=== PATIENT | female | born 2000 | race Caucasian/White ===

== ENCOUNTER → 2019-03-30 16:46 | Observation (INO) ==
[2019-03-30 14:47] LABS: Protein/Creatinine Ratio,Urine 0.34 mg/mg (0.00-0.20)
== END | disposition home or self-care (01) ==
LOC: 1NENULAB
PROVIDERS: ADMIT Advanced Practice Midwife; ATTEND Advanced Practice Midwife

== ENCOUNTER 2019-04-27 12:08 | Inpatient (IN) ==
[2019-04-27] MEDS ORDERED: NIFEdipine 10 MG CAPSULE PO ONE (13:11)
[2019-04-27 13:19] LABS: Basophils % 0.4 %; Eosinophils # 0.2 K/mcL (0.0-0.6); Hemoglobin 12.1 g/dL (11.5-15.4); Immature Granulocytes % 0.5 % (0-4); Lymphocytes # 1.9 K/mcL (0.6-4.6); Lymphocytes % 22.7 %; Mean Corpuscular HGB Conc 33.6 g/dL (31.6-35.5); Mean Corpuscular Hemoglobin 29.7 pg (28.0-33.3); Mean Corpuscular Volume 88.2 fL (83.0-100.0); Mean Platelet Volume 12.1 fL (9.4-12.4); Monocytes # 0.7 K/mcL (0.0-1.3); Monocytes % 8.3 %; Neutrophils # 5.4 K/mcL (1.6-8.9); Platelet Count 214 K/mcL (140-400); Red Blood Count 4.08 M/mcL (3.82-4.97); Segmented Neutrophils % 66.1 %; White Blood Count 8.2 K/mcL (4.3-11.1)
[2019-04-27 13:34] LABS: Amphetamine Screen,Urine Negative ng/mL (Cutoff=1000); Barbiturate Screen,Urine Negative ng/mL (Cutoff=200); Benzodiazepines Screen,Urine Negative ng/mL (Cutoff=200); Cannabinoid Screen,Urine Negative ng/mL (Cutoff = 50); Cocaine Screen,Urine Negative ng/mL (Cutoff= 300); Opiate Screen,Urine Negative ng/mL (Cutoff=300); Phencyclidine Screen,Urine Negative ng/mL (Cutoff=25)
[2019-04-27 13:36] LABS: Alanine Aminotransferase 19 Units/L (7-52); Aspartate Amino Transferase 21 Units/L (13-39); BUN/Creatinine Ratio 12 (6-26); Blood Urea Nitrogen 8 mg/dL (6-20); Lactate Dehydrogenase 160 Units/L (140-271); Uric Acid 5.4 mg/dL (2.3-7.6); eGFR For African Americans > 60 (> 60); eGFR For Non-African Americans > 60 (> 60)
[2019-04-27 13:51] LABS: Creatinine,Urine 376 mg/dL; Protein/Creatinine Ratio,Urine 0.51 mg/mg (0.00-0.20)
[2019-04-27] MEDS ORDERED: Famotidine 20 MG/2 ML VIAL IVP PRN (14:30)
[2019-04-27] MEDS ORDERED: Naloxone 0.4 MG/ML INJ IVP PRN (14:30)
[2019-04-27] MEDS ORDERED: Ondansetron 4 MG/2 ML VIAL IVP PRN (14:30)
[2019-04-27] MEDS ORDERED: Ringers Solution, Lactated 1,000 ML IVC SCH (14:30)
[2019-04-27] MEDS ORDERED: Metoclopramide 10 MG/2 ML VIAL IVP PRN (14:30)
[2019-04-27] MEDS ORDERED: *HR* Nalbuphine 10 MG/ML AMPUL IVP PRN (14:30)
[2019-04-27] MEDS ORDERED: miSOPROStoL 25 MCG TABLET VG PRN (14:35)
[2019-04-27] MEDS ORDERED: Calcium Gluconate 1,000 MG/10 ML VIAL IVP PRN (14:56)
[2019-04-27] MEDS ORDERED: Magnesium Sulf 20gm/LR 500mL 20 GM/500 ML IV.SOLN IVC SCH (15:00)
[2019-04-27] MEDS ORDERED: D5% in 0.9% NACL 1,000 ML IVC SCH (17:15)
[2019-04-27] MEDS ORDERED: NIFEdipine XL (24 HR) 60 MG TAB.ER.24 PO SCH (17:53)
[2019-04-27] MEDS ORDERED: Azithromycin 500 MG in 0.9 % Sodium Chloride 250 ML IVPB ONE ×2 (19:19→19:21)
[2019-04-27] MEDS ORDERED: Acetaminophen IV 1,000 MG/100 ML INFUS..BTL IVPB ONE (20:15)
[2019-04-27] MEDS ORDERED: LAMICTAL PO SCH (21:00)
[2019-04-27] MEDS ORDERED: lamoTRIgine 100 MG TABLET PO SCH (21:00)
[2019-04-27] MEDS ORDERED: Ringers Solution, Lactated 1,000 ML ONE (23:03)
[2019-04-27] MEDS ORDERED: *HR* Oxytocin 10 UNIT/ML VIAL IM ONE (23:03)
[2019-04-27] MEDS ORDERED: *HR* FentaNYL (PF) 100 MCG/2 ML VIAL ONE (23:04)
[2019-04-27] MEDS ORDERED: *HR* Morphine Sulfate/PF 10 MG/10 ML AMPUL ONE (23:05)
[2019-04-27] MEDS ORDERED: EPHEDrine 50 MG/ML VIAL ONE (23:28)
[2019-04-27] MEDS ORDERED: Ondansetron 4 MG/2 ML VIAL ONE (23:48)
[2019-04-27] MEDS ORDERED: Dexamethasone 4 MG/ML VIAL ONE (23:48)
[2019-04-28] MEDS ORDERED: Propofol 500 MG/50 ML INFUS..BTL ONE (00:02)
[2019-04-28] MEDS ORDERED: Morphine Sulfate 2 MG/ML SYRINGE IVP PRN (00:05)
[2019-04-28] MEDS ORDERED: *HR* OxyCODONE/APAP 5/325 TABLET PO PRN (00:05)
[2019-04-28] MEDS ORDERED: Ibuprofen 400 MG TABLET PO PRN (00:05)
[2019-04-28] MEDS ORDERED: *HR* Oxytocin 10 UNIT/ML VIAL IM ONE (00:09)
[2019-04-28] MEDS ORDERED: Measles/Mumps/Rubella Vacc 0.5 ML VIAL SQ ONE (03:04)
[2019-04-28] MEDS ORDERED: Ondansetron 4 MG/2 ML VIAL IVP PRN (03:04)
[2019-04-28] MEDS ORDERED: Magnesium Sulf 20gm/LR 500mL 20 GM/500 ML IV.SOLN IVC SCH (03:04)
[2019-04-28] MEDS ORDERED: Simethicone 80 MG TAB.CHEW PO PRN (03:04)
[2019-04-28] MEDS ORDERED: D5% in 0.9% NACL 1,000 ML IVC SCH (03:04)
[2019-04-28] MEDS ORDERED: Calcium Gluconate 1,000 MG/10 ML VIAL ONE (03:30)
[2019-04-28] MEDS: Ibuprofen 600 MG TABLET PO SCH ×3 (05:36→17:59)
[2019-04-28] MEDS: Acetaminophen 325 MG TABLET PO SCH ×3 (05:37→18:00)
[2019-04-28 06:29] LABS: Alanine Aminotransferase 16 Units/L (7-52); Aspartate Amino Transferase 20 Units/L (13-39); BUN/Creatinine Ratio 7 (6-26); Blood Urea Nitrogen 4 mg/dL (6-20); Lactate Dehydrogenase 235 Units/L (140-271); Uric Acid 4.8 mg/dL (2.3-7.6); eGFR For African Americans > 60 (> 60); eGFR For Non-African Americans > 60 (> 60)
[2019-04-28] MEDS: metroNIDAZOLE 500 MG TABLET PO SCH ×3 (08:36→20:20)
[2019-04-28] MEDS: cephALEXin 500 MG CAPSULE PO SCH ×3 (08:36→20:20)
[2019-04-28] MEDS: miSOPROStoL 100 MCG TABLET PO SCH (08:37)
[2019-04-28] MEDS ORDERED: NIFEdipine XL (24 HR) 60 MG TAB.ER.24 PO SCH (09:00)
[2019-04-28] MEDS ORDERED: Prenatal Vit/FA 1 EACH TABLET PO SCH (09:00)
[2019-04-28] MEDS: Prenatal Vit/FA 1 EACH TABLET PO SCH (10:49)
[2019-04-28] MEDS: lamoTRIgine 100 MG TABLET PO SCH ×2 (10:49→20:20)
[2019-04-28] MEDS: *HR* OxyCODONE Immed Rel 5 MG TABLET PO PRN (22:41)
[2019-04-29] MEDS: Acetaminophen 325 MG TABLET PO SCH ×2 (00:26→06:16)
[2019-04-29] MEDS: Ibuprofen 600 MG TABLET PO SCH ×2 (00:26→06:16)
[2019-04-29] MEDS: miSOPROStoL 100 MCG TABLET PO SCH ×2 (07:30→10:10)
[2019-04-29] MEDS: metroNIDAZOLE 500 MG TABLET PO SCH (08:00)
[2019-04-29] MEDS: cephALEXin 500 MG CAPSULE PO SCH (08:00)
[2019-04-29] MEDS: lamoTRIgine 100 MG TABLET PO SCH (08:00)
[2019-04-29] MEDS: Prenatal Vit/FA 1 EACH TABLET PO SCH (10:10)
[2019-04-29 10:33] LABS: Basophils % 0.3 %; Eosinophils # 0.1 K/mcL (0.0-0.6); Eosinophils % 1.2 %; Hematocrit 32.3 % (35.3-44.9); Hemoglobin 11.1 g/dL (11.5-15.4); Immature Granulocytes % 0.4 % (0-4); Lymphocytes # 2.3 K/mcL (0.6-4.6); Lymphocytes % 22.8 %; Mean Corpuscular HGB Conc 34.4 g/dL (31.6-35.5); Mean Corpuscular Hemoglobin 30.6 pg (28.0-33.3); Mean Platelet Volume 11.6 fL (9.4-12.4); Monocytes # 0.8 K/mcL (0.0-1.3); Neutrophils # 6.7 K/mcL (1.6-8.9); Platelet Count 222 K/mcL (140-400); Red Blood Count 3.63 M/mcL (3.82-4.97); Red Cell Distribution Width 12.5 % (11.5-14.5); Segmented Neutrophils % 67.3 %
[2019-04-29 10:41] LABS: Alanine Aminotransferase 16 Units/L (7-52); Aspartate Amino Transferase 23 Units/L (13-39); BUN/Creatinine Ratio 10 (6-26); Blood Urea Nitrogen 7 mg/dL (6-20); Lactate Dehydrogenase 275 Units/L (140-271); Uric Acid 4.2 mg/dL (2.3-7.6); eGFR For African Americans > 60 (> 60); eGFR For Non-African Americans > 60 (> 60)
[2019-04-29] MEDS: *HR* OxyCODONE Immed Rel 5 MG TABLET PO PRN (10:51)
[2019-04-29 11:06] LABS: Protein/Creatinine Ratio,Urine 0.31 mg/mg (0.00-0.20)
[2019-04-29 11:51] VITALS: BP 123/83
== END 2019-04-29 12:25 | disposition home or self-care (01) | DRG 787 ==
LOC: 1NENULAB → OBSVTOIN 12:08 → 1NENUOBS 04-28 02:48
PROVIDERS: ADMIT Advanced Practice Midwife; ATTEND Advanced Practice Midwife